=== PATIENT | female | born 1965 | race Caucasian/White ===

== ENCOUNTER 2018-06-17 10:03 | Outpatient (CLI) | payer OTHER ==
--- NOTE | 2018-06-17 11:17 | MMO ---
BASELINE SCREENING MAMMOGRAM: DATE: 06/17/2018. HISTORY: Screening study. FINDINGS: The patient's mammogram is interpreted with the assistance of computer-aided detection. There is scattered fibroglandular density noted. Benign microcalcifications are seen bilaterally. There is a 5-6 mm mass in the right breast deep in a retroareolar region. IMPRESSION: BI-RADS 0 - incomplete. Further imaging assessment advised. Recommend diagnostic mammogram and focu sed breast ultrasound on the right. BIRADS 0: Incomplete: Need Additional Imaging Evaluation and/or Prior Mammograms for Comparison POS: SANJUANA
== END 2018-06-17 10:04 | disposition home or self-care (01) ==
LOC: SCSMAMMO 10:03
PROVIDERS: ATTEND Family Medicine
DX: Z12.31 Encounter for screening mammogram for malignant neoplasm of breast (principal)
CPT/HCPCS: 77067

== ENCOUNTER 2018-07-24 08:40 | Outpatient (CLI) | payer OTHER ==
--- NOTE | 2018-07-24 09:50 | ULT ---
LIMITED RIGHT BREAST ULTRASOUND: 07/24/2018 PROVIDED CLINICAL HISTORY: Abnormal mammogram. FINDINGS: Limited sonographic interrogation of the right breast was performed at the 12 o'clock position, in th e region of mammographic concern. There is a circumscribed focus of diminished echogenicity, measuri ng approximately 5 to 6 mm, in the region of mammographic concern. This demonstrates no posterior sh adowing but is not completely anechoic. IMPRESSION: BI-RADS category 3-Probably benign findings. Six-month follow-up mammogram and ultrasound recommende d for probable debris-filled cyst. POS: OFF
== END 2018-07-24 08:41 | disposition home or self-care (01) ==
LOC: BICMAMMO 08:40
PROVIDERS: ATTEND Family Medicine
DX: N63.41 Unspecified lump in right breast, subareolar (principal)
CPT/HCPCS: G0279

== ENCOUNTER 2019-01-18 08:05 | Outpatient (CLI) | payer OTHER ==
--- NOTE | 2019-01-18 08:42 | MMO ---
Right Breast MAMMO Unilat Diag DDI RT+JACQUELINE. CLINICAL HISTORY: Patient is 53 years old and is seen for diagnostic exam. The patient has no family history of breast cancer. The patient has no personal history of cancer. VIEWS: The views performed were: right craniocaudal with tomosynthesis; right mediolateral oblique with tomosynthesis; and right mediolateral with tomosynthesis. FILMS COMPARED: The present examination has been compared to prior imaging studies performed at [facility] on 07/24/2018 and 01/18/2019, and at [facility] on 06/17/2018. MAMMOGRAM FINDINGS: There are scattered fibroglandular densities. The small nodule at 12:00 is stable on mammo and US. IMPRESSION: FINDING IN THE RIGHT BREAST IS PROBABLY BENIGN. FOLLOW-UP IN 6 MONTHS IS RECOMMENDED. THE RESULTS OF THIS EXAM WERE SENT TO THE PATIENT. ACR BI-RADS Category 3 - Probably benign finding - short interval follow-up suggested. [facility] will notify the patient of the need for additional imaging services. MAMMOGRAPHY NOTE: 1. A negative mammogram report should not delay a biopsy if a dominant of clinically suspicious mass is present. 2. Approximately 10% to 15% of breast cancers are not detected by mammography. 3. Adenosis and dense breasts may obscure an underlying neoplasm. Reported by: CARLY APARICIO MD Electonically Signed: [id number]
--- NOTE | 2019-01-18 10:42 | ULT ---
RIGHT BREAST ULTRASOUND: Date: 01/18/19 HISTORY: Right breast mass. FINDINGS/IMPRESSION: Comparison made with the ultrasound of 07/24/18 and correlation made with mammograms of same date. Sonographic evaluation of the 12 o'clock position of the right breast demonstrates a stable 5-6 mm hy poechoic nonshadowing nodule, likely debris-filled cyst. IMPRESSION: BIRADS 3: Probably Benign Finding Initial Short-Interval Follow-Up Suggested Initial short-term follow up (usually 6-month) examination POS: OFF
== END 2019-01-18 08:06 | disposition home or self-care (01) ==
LOC: BICMAMMO 08:05
PROVIDERS: ATTEND Family Medicine
DX: N63.10 Unspecified lump in the right breast, unspecified quadrant (principal)
CPT/HCPCS: G0279

== ENCOUNTER 2019-07-19 09:46 | Outpatient (CLI) | payer OTHER ==
--- NOTE | 2019-07-19 10:50 | MMO ---
Bilateral MAMMO Bilat Diag DDI+JACQUELINE. CLINICAL HISTORY: Patient is 53 years old and is seen for diagnostic exam. The patient has no family history of breast cancer. The patient has no personal history of cancer. VIEWS: The views performed were: bilateral craniocaudal with tomosynthesis; bilateral mediolateral oblique with tomosynthesis; and bilateral mediolateral with tomosynthesis. FILMS COMPARED: The present examination has been compared to prior imaging studies performed at [facility] on 07/24/2018, 01/18/2019 and 07/19/2019. This study has been interpreted with the assistance of computer-aided detection. MAMMOGRAM FINDINGS: There are scattered fibroglandular densities. There is a nodule measuring 5 millimeters seen in the CC view only seen in the central region of the right breast. This has decreased in size from the prior exam. It is uncertain whether or not this corresponds to the sonographic lesion. In the left breast, there are no suspicious masses, calcifications or areas of architectural distortion. IMPRESSION: NODULE IN THE RIGHT BREAST IS PROBABLY BENIGN. FOLLOW-UP IN 1 YEAR IS RECOMMENDED. THE RESULTS OF THIS EXAM WERE SENT TO THE PATIENT. ACR BI-RADS Category 3 - Probably benign finding - short interval follow-up suggested. [facility] will notify the patient of the need for additional imaging services. MAMMOGRAPHY NOTE: 1. A negative mammogram report should not delay a biopsy if a dominant of clinically suspicious mass is present. 2. Approximately 10% to 15% of breast cancers are not detected by mammography. 3. Adenosis and dense breasts may obscure an underlying neoplasm. Reported by: ALE SHOEMAKER MD Electonically Signed: [id number]
--- NOTE | 2019-07-19 12:12 | ULT ---
ULTRASOUND RIGHT BREAST LIMITED: Date: 07/19/2019 HISTORY: 53-year-old female follow-up right breast lesion. COMPARISON: 01/18/2019 and 07/24/2018. TECHNIQUE: Focused ultrasound at 12 o'clock position of right breast. FINDINGS: At the 12 o'clock position, 2 cm from the nipple, there is an approximately 0.4 x 0.4 x 0.3 cm hypoec hoic lesion, which is not completely anechoic. No acoustic shadowing. This may or may not correspond to the mammographic nodule, which is less conspicuous on the current mammogram compared to priors. Th is is favored to be a tiny cyst with debris. Before this is declared a BI-RADS Category 2 definitely benign lesion, stability must be demonstrated for a total of 2 years. IMPRESSION: 1. BI-RADS Category 3 - Probably benign. Short interval follow-up suggested. 2. One final follow-up right breast ultrasound is recommended in July 2020, which will be the 2 y ear anniversary from the original discovery of the lesion. Thereafter, no further follow-up ultrasoun ds will be necessary if the lesion remains unchanged at that time. The patient should have this follo w-up ultrasound at the time of her bilateral annual mammogram. POS: OFF
== END 2019-07-19 09:47 | disposition home or self-care (01) ==
LOC: BICMAMMO 09:46
PROVIDERS: ATTEND Family Medicine
DX: R92.8 Other abnormal and inconclusive findings on diagnostic imaging of breast (principal)
CPT/HCPCS: 77066; G0279